=== PATIENT | female | born 1990 | race Caucasian/White ===

== ENCOUNTER 2018-03-06 16:16 | Emergency (ER) | payer BC ==
[2018-03-06] MEDS ORDERED: Ondansetron 4 MG Tab.DIS PO ONE (16:37)
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
== END 2018-03-06 17:50 | disposition home or self-care (01) ==
LOC: JD.ED 16:16
DX: T74.21XA Adult sexual abuse, confirmed, initial encounter (principal); F32.89 Other specified depressive episodes; Y92.038 Other place in apartment as the place of occurrence of the external cause
CPT/HCPCS: 99283; A9270

== ENCOUNTER 2019-03-15 21:18 | Inpatient (IN) | payer BC ==
[2019-03-15] MEDS ORDERED: Ondansetron 4 MG Tab.DIS PO PRN (22:38)
[2019-03-16] MEDS ORDERED: Bupivacaine 0.25% 10 ML SDV ONE
[2019-03-16] MEDS ORDERED: Sodium Chloride 0.9% 10 ML Syringe FLUSH PRN (00:06)
[2019-03-16] MEDS ORDERED: Oxytocin/Lactated Ringers 10 UNIT/1,000 ML BAG IV SCH ×2 (00:15)
[2019-03-16] MEDS ORDERED: Lactated Ringers 1,000 ML IV SCH (00:15)
[2019-03-16] MEDS: Nalbuphine 10 MG/1 ML Vial IVPUSH PRN ×2 (01:35→03:38)
[2019-03-16] MEDS ORDERED: fentaNYL/Bupivacaine in NS PF 2 MCG-0.125% 250 ML Premix EPIDUR PRN (04:12)
[2019-03-16] MEDS ORDERED: ePHEDrine 50 MG/ML SDV IVPUSH PRN (04:12)
[2019-03-16] MEDS ORDERED: diphenhydrAMINE 50 MG/ML SDV IVPUSH PRN (04:12)
[2019-03-16] MEDS ORDERED: fentaNYL 100 MCG/2 ML SDV EPIDUR PRN (04:12)
--- NOTE | 2019-03-16 04:15 | PCM.PREANE ---
Preanesthetic Assessment - Procedure Proposed Procedure: ivana - Anesthesia/Transfusion/Family Hx Anesthesia History: Prior Anesthesia Without Reaction Family History of Anesthesia Reaction: No Transfusion History: No Prior Transfusion(s) - Review of Systems General: No Symptoms Pulmonary: No Symptoms Cardiovascular: No Symptoms Gastrointestinal: No Symptoms Neurological: No Symptoms Other: Reports: None - Physical Assessment Vital Signs: /143/87 116 Height: 5 ft 4 in Weight: 74.661 kg ASA Class: 2 Mental Status: Alert & Oriented x3 Airway Class: Mallampati = 1 Dentition: Reports: Normal Dentition Thyro-Mental Finger Breadths: 3 Mouth Opening Finger Breadths: 3 ROM/Head Extension: Full Lungs: Clear to Auscultation, Normal Respiratory Effort Cardiovascular: Regular Rate, Regular Rhythm - Lab Values: Laboratory Last Values WBC 14.65 K/mm3 (3.98-10.04) H 03/16/19 00:30 RBC 4.24 M/mm3 (3.98-5.22) 03/16/19 00:30 Hgb 13.5 gm/dl (11.2-15.7) 03/16/19 00:30 Hct 39.6 % (34.1-44.9) 03/16/19 00:30 MCV 93.4 fl (79.4-94.8) 03/16/19 00:30 MCH 31.8 pg (25.6-32.2) 03/16/19 00:30 MCHC 34.1 g/dl (32.2-35.5) 03/16/19 00:30 RDW Std Deviation 42.3 fL (36.4-46.3) 03/16/19 00:30 Plt Count 210 K/mm3 (182-369) 03/16/19 00:30 MPV 10.6 fl (9.4-12.3) 03/16/19 00:30 Neut % (Auto) 72.8 % (34.0-71.1) H 03/16/19 00:30 Lymph % (Auto) 17.3 % (19.3-51.7) L 03/16/19 00:30 [place] % (Auto) 9.0 % (4.7-12.5) 03/16/19 00:30 Eos % (Auto) 0.5 (0.7-5.8) L 03/16/19 00:30 Baso % (Auto) 0.1 % (0.1-1.2) 03/16/19 00:30 Neut # (Auto) 10.66 K/mm3 (1.56-6.13) H 03/16/19 00:30 Lymph # (Auto) 2.54 K/mm3 (1.18-3.74) 03/16/19 00:30 [place] # (Auto) 1.32 K/mm3 (0.24-0.36) H 03/16/19 00:30 Eos # (Auto) 0.07 K/mm3 (0.04-0.36) 03/16/19 00:30 Baso # (Auto) 0.01 K/mm3 (0.01-0.08) 03/16/19 00:30 - Allergies Allergies/Adverse Reactions: Allergies Allergy/AdvReac Type Severity Reaction Status Date / Time No Known Allergies Allergy Verified 03/15/19 22:38 - Blood Blood Available: No - Acknowledgements Anesthesia Type Planned: Epidural Pt an Appropriate Candidate for the Planned Anesthesia: Yes Alternatives and Risks of Anesthesia Discussed w Pt/Guardian: Yes Pt/Guardian Understands and Agrees with Anesthesia Plan: Yes PreAnesthesia Questionnaire - Past Health History Medical/Surgical History: Denies Medical/Surgical History Cardiovascular History: Reports: None Respiratory History: Reports: None Gastrointestinal History: Reports: GERD (with preg) 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 , Other (See Below) : 3 Para: 0 Other OB/BYN History: D&C performed September 2017 - Past Surgical History Female Surgical History: Reports: D&C - SUBSTANCE USE Smoking Status *Q: Never Smoker Tobacco Use Within Last Twelve Months: No Second Hand Smoke Exposure: No Days Per Week of Alcohol Use: 0 Recreational Drug Use History: No - HOME MEDS Home Medications: Home Meds Acetaminophen [Tylenol] 325 mg PO 03/16/19 [History] Vit No.129/Iron/FA [ Tablet] 1 each PO 03/16/19 [History] - CURRENT (IN HOUSE) MEDS Current Meds: Current Medications Lactated Ringer's (Ringers, Lactated) 1,000 mls @ 100 mls/hr IV ASDIRECTED HOLLY Oxytocin/Lactated Ringer's (Pitocin In Lr 10 Units/1,000 Ml) 10 unit in 1,000 mls @ 500 mls/hr IV .CONTINUOUS HOLLY Oxytocin/Lactated Ringer's (Pitocin In Lr 10 Units/1,000 Ml) 10 unit in 1,000 mls @ 12 mls/hr IV TITRATE HOLLY; Protocol Nalbuphine HCl (Nubain) 10 mg IVPUSH Q2H PRN PRN Reason: Pain Last Admin: 03/16/19 03:38 Dose: 10 mg Ondansetron HCl (Zofran Odt) 4 mg PO Q4H PRN PRN Reason: Nausea/Vomiting Last Admin: 03/15/19 22:59 Dose: 4 mg Sodium Chloride (Saline Flush) 10 ml FLUSH ASDIRECTED PRN PRN Reason: Keep Vein Open
--- NOTE | 2019-03-16 06:53 | PCM.LDHP ---
L&D History of Present Illness - General Date of Service: 03/15/19 Admit Problem/Dx: Patient Status Order with Admit Dx/Problem 03/15/19 22:39 Patient Status [ADT] Routine 03/16/19 00:19 Admission Status [Patient Status] [ADT] Routine Admission Diagnosis/Problem Admission Diagnosis/Problem Source of Information: Patient History Limitations: Reports: No Limitations - History of Present Illness Introduction:: Patient is a 28 y/o at 38 6/7 wks who presents in labor. Contractions have been uncomfortable since clinic appointment. 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 : 3 Para: 0 LMP (Approximate): - Past Surgical History Female Surgical History: Reports: D&C Social & Family History - Family History Family Medical History: Noncontributory - Tobacco Use Smoking Status *Q: Never Smoker Second Hand Smoke Exposure: No - Alcohol Use Alcohol Use History: No Days Per Week of Alcohol Use: 0 - Recreational Drug Use Recreational Drug Use: No H&P Review of Systems - Review of Systems: Review Of Systems: See Below General: Reports: No Symptoms Pulmonary: Reports: No Symptoms Cardiovascular: Reports: No Symptoms Gastrointestinal: Reports: Abdominal Pain Genitourinary: Reports: No Symptoms Musculoskeletal: Reports: No Symptoms Psychiatric: Reports: No Symptoms Neurological: Reports: No Symptoms L&D Exam - Exam Exam: See Below - Vital Signs Weight: 74.661 kg - OB Specific Contraction Intensity: Moderate Movement: Active Heart Tones: Present Heart Tones per Min: 135 Heart Rate (FHR) Variability: Moderate (6-25 bmp) Presentation: Vertex - Myers Score Myers Score Cervix Position: Midposition Myers Score Consistency: Soft Myers Score Effacement: 51-70% Myers Score Dilation: 3-4 cm Myers Score 's Station: -2 Myers Score Total: 8 - Exam General: Alert, Oriented, Cooperative Lungs: Clear to Auscultation, Normal Respiratory Effort Cardiovascular: Regular Rate, Regular Rhythm GI/Abdominal Exam: Soft, Non-Tender Genitourinary: Normal external exam Extremities: Normal Inspection Skin: Warm, Dry, Intact - Patient Data Lab Results Last 24 hrs: Laboratory Results - last 24 hr 03/16/19 Range/Units 00:30 WBC 14.65 H (3.98-10.04) K/mm3 RBC 4.24 (3.98-5.22) M/mm3 Hgb 13.5 (11.2-15.7) gm/dl Hct 39.6 (34.1-44.9) % MCV 93.4 (79.4-94.8) fl MCH 31.8 (25.6-32.2) pg MCHC 34.1 (32.2-35.5) g/dl RDW Std Deviation 42.3 (36.4-46.3) fL Plt Count 210 (182-369) K/mm3 MPV 10.6 (9.4-12.3) fl Neut % (Auto) 72.8 H (34.0-71.1) % Lymph % (Auto) 17.3 L (19.3-51.7) % [place] % (Auto) 9.0 (4.7-12.5) % Eos % (Auto) 0.5 L (0.7-5.8) Baso % (Auto) 0.1 (0.1-1.2) % Neut # (Auto) 10.66 H (1.56-6.13) K/mm3 Lymph # (Auto) 2.54 (1.18-3.74) K/mm3 [place] # (Auto) 1.32 H (0.24-0.36) K/mm3 Eos # (Auto) 0.07 (0.04-0.36) K/mm3 Baso # (Auto) 0.01 (0.01-0.08) K/mm3 Result Diagrams: 03/16/19 00:30 - Problem List (1) 39 weeks gestation of SNOMED Code(s): 66449451 ICD Code: Z3A.39 - 39 WEEKS GESTATION OF Status: Acute Current Visit: Yes (2) Normal labor SNOMED Code(s): 31471547 ICD Code: O80 - ENCOUNTER FOR FULL-TERM UNCOMPLICATED DELIVERY; Z37.9 - OUTCOME OF DELIVERY, UNSPECIFIED Status: Acute Current Visit: Yes Problem List Initiated/Reviewed/Updated: Yes Orders Last 24hrs: Active Orders 24 hr Category Date Time Status Admission Status [Patient Status] [ADT] Routine ADT 03/16/19 00:19 Active Patient Status [ADT] Routine ADT 03/15/19 22:39 Active Activity as Tolerated [RC] PFP Care 03/16/19 00:06 Active Communication Order [RC] ASDIRECTED Care 03/16/19 00:06 Active Heart Tones [RC] ASDIRECTED Care 03/16/19 00:06 Active Non Stress Test [RC] PER UNIT ROUTINE Care 03/15/19 22:39 Active Non Stress Test [RC] PER UNIT ROUTINE Care 03/16/19 00:06 Active Notify Provider [RC] ASDIRECTED Care 03/16/19 04:12 Active Notify Provider [RC] PFP Care 03/16/19 00:06 Active Notify Provider [RC] PRN Care 03/16/19 00:06 Active Peripheral IV Care [RC] . DIRECTED Care 03/16/19 00:06 Active Vital Signs [RC] PER UNIT ROUTINE Care 03/15/19 22:39 Active Vital Signs [RC] PER UNIT ROUTINE Care 03/16/19 00:06 Active Regular Diet [DIET] Diet 03/15/19 Dinner Active RAPID PLASMA REAGIN,RPR [CHEM] Routine Lab 03/16/19 00:30 Received Bupivicaine/fentaNYL/NS [fentaNYL/Bupivacaine/NS 2 MCG- Med 03/16/19 04:12 Active 0.125% 250 ML] 2 mcg EPIDUR CONTINUOUS PRN Lactated Ringers [Ringers, Lactated] 1,000 ml Med 03/16/19 00:15 Active IV ASDIRECTED Nalbuphine [Nubain] Med 03/16/19 00:06 Active 10 mg IVPUSH Q2H PRN Ondansetron [Zofran ODT] Med 03/15/19 22:38 Active 4 mg PO Q4H PRN Oxytocin/Lactated Ringers [Pitocin in LR 10 Units/1,000 Med 03/16/19 00:15 Active ML] 10 unit in 1,000 ml IV .CONTINUOUS Oxytocin/Lactated Ringers [Pitocin in LR 10 Units/1,000 Med 03/16/19 00:15 Active ML] 10 unit in 1,000 ml IV TITRATE Sodium Chloride 0.9% [Saline Flush] Med 03/16/19 00:06 Active 10 ml FLUSH ASDIRECTED PRN diphenhydrAMINE [Benadryl] Med 03/16/19 04:12 Active 25 mg IVPUSH Q6H PRN ePHEDrine [ePHEDrine sulfate] Med 03/16/19 04:12 Active 5 mg IVPUSH ASDIRECTED PRN fentaNYL [Sublimaze] Med 03/16/19 04:12 Active 100 mcg EPIDUR Q3H PRN Electronic Heart Tones Ext w TOCO [WOMSER] Oth 03/16/19 00:06 Ordered Routine Electronic Heart Tones Internal [WOMSER] Per Unit Ot 03/16/19 00:06 Ordered Routine Peripheral IV Insertion Adult [OM.PC] Routine Oth 03/16/19 00:06 Ordered Resuscitation Status Routine Resus Stat 03/15/19 22:38 Ordered Medication Orders Diphenhydramine HCl (Benadryl) 25 mg IVPUSH Q6H PRN PRN Reason: pruritis Ephedrine Sulfate (Ephedrine Sulfate) 5 mg IVPUSH ASDIRECTED PRN PRN Reason: Hypotension Fentanyl (Sublimaze) 100 mcg EPIDUR Q3H PRN PRN Reason: Pain Fentanyl/Bupivacaine HCl (Fentanyl/Bupivacaine/Ns 2 Mcg-0.125% 250 Ml) 2 mcg EPIDUR CONTINUOUS PRN PRN Reason: Pain Lactated Ringer's (Ringers, Lactated) 1,000 mls @ 100 mls/hr IV ASDIRECTED HOLLY Oxytocin/Lactated Ringer's (Pitocin In Lr 10 Units/1,000 Ml) 10 unit in 1,000 mls @ 500 mls/hr IV .CONTINUOUS HOLLY Oxytocin/Lactated Ringer's (Pitocin In Lr 10 Units/1,000 Ml) 10 unit in 1,000 mls @ 12 mls/hr IV TITRATE HOLLY; Protocol Nalbuphine HCl (Nubain) 10 mg IVPUSH Q2H PRN PRN Reason: Pain Last Admin: 03/16/19 03:38 Dose: 10 mg Admin: 03/16/19 01:35 Dose: 10 mg Ondansetron HCl (Zofran Odt) 4 mg PO Q4H PRN PRN Reason: Nausea/Vomiting Last Admin: 03/15/19 22:59 Dose: 4 mg Sodium Chloride (Saline Flush) 10 ml FLUSH ASDIRECTED PRN PRN Reason: Keep Vein Open Assessment/Plan Comment:: 28 y/o at 38 6/7 wks presents in labor * Labs * GBS negative, no need for antibiotics * Pain management per patietn preference * Anticipate
--- NOTE | 2019-03-16 08:00 | PCM.DEL ---
L & D Note - General Info Date of Service: 03/16/19 - Delivery Note Labor: Spontaneous Delivery Outcome: Livebirth Delivery Method: Spontaneous Vaginal Delivery-Single Delivery Mode: Vacuum Extraction Presentation: Right Occiput Posterior (ROP) Nuchal Cord: Present (x2), Reduced Anesthesia Type: Epidural Amniotic Fluid Description: Meconium Stained Episiotomy Type: None Laceration: 2nd Degree, Perineal Suture type: Vicryl Suture size: 2-0 Placenta: Intact, Spontaneous Cord: 3 Vessels Estimated Blood Loss: 100 : Suctioned, Bulb Syringe, Stimulated, Warmed, Riddle Used, Warmer Used Score 1 min: 2 Score 5 min: 7 Delivery Comments (Free Text/Narrative):: The patient was pushing in the dorsal lithotomy position. Sterile vaginal exam complete/complete/+3 station. head in ROP presentation. Maternal pushing effort was good and the pelvis was felt to be adequate for an instrument assisted delivery. Given repetitive variable decelerations the decision was made to proceed with vacuum assisted vaginal delivery. The mushroom cup was placed without difficulty with care to avoid the vaginal side graves. Pressure applied at 0736. Subsequent vacuum assisted vaginal delivery at 0741 with pushing over 3 contractions. Total pressure applied 550 mmHg. Total pop offs 0. Suction was removed following delivery of the head. Nuchal cord x2 was reduced without difficulty. The remainder of the infant delivered without difficulty. The umbilical cord was clamped and cut and the infant was taken to the warmer for assessment. Cord segment obtained for cord gas, but not able to be run due to malfunctioning equipment. Placenta allowed time to separate and expelled intact. Inspection of the perineum following delivery with a 2nd degree laceration noted. This was repaired with a 2-0 vicryl in the typical fashion. Vacuum Extractor Progress Note - Alternative Labor Strategies Considered Alternative Labor Strategies Considered:: Reports: Yes Strategies Considered:: Reports: Contraction Intensity Adequate, Position Changes Used to Facilitate Rotation & Descent, Empty Bladder Indications Considered:: Reports: Yes Indications:: Reports: Suspicion of Immediate or Potential Compromise Time Out:: Reports: Yes - Patient Prepared Patient Prepared:: Reports: Yes Informed Consent:: Reports: Verbal Risks: Reports: Yes Risks Include:: Reports: Laceration, Shoulder Dystocia, Maternal Injury Anesthesia/Analgesia Adequate:: Reports: Yes - Probability of Success High Probability of Success:: Reports: Yes Weight Estimated:: Reports: AGA Patient Diabetic:: Reports: No Pelvis Adequate:: Reports: Yes Position:: ROP Asynclitic:: Reports: No Station:: +3 - Application Time Maximum Application Time & Number of Pop-Offs Predetermined:: Reports: Yes Maximum Pressure Maintained in Green Zone (cm Hg):: 550 Total Application Time (min): *max=20min: 5 Number of Times Cup Disengaged:: 0 Type of Vacuum Used:: Reports: Cup: Mushroom type Vacuum Extraction: Successful - Exit Strategy Exit strategy available:: Reports: Yes and resuscitation teams readily available:: Reports: Yes - General Info Date of Service: 03/16/19 - Patient Data Weight - Most Recent: 74.661 kg - Problem List & Annotations (1) 39 weeks gestation of SNOMED Code(s): 93403466 Code(s): Z3A.39 - 39 WEEKS GESTATION OF Status: Acute Current Visit: Yes (2) Normal labor SNOMED Code(s): 02858483 Code(s): O80 - ENCOUNTER FOR FULL-TERM UNCOMPLICATED DELIVERY; Z37.9 - OUTCOME OF DELIVERY, UNSPECIFIED Status: Acute Current Visit: Yes (3) Meconium stained amniotic fluid, delivered, current hospitalization SNOMED Code(s): 290383680, 036801993 Code(s): O77.0 - LABOR AND DELIVERY COMPLICATED BY MECONIUM IN AMNIOTIC FLUID Status: Acute Current Visit: Yes (4) Double nuchal cord SNOMED Code(s): 636653533 Code(s): O69.1XX0 - LABOR AND DELIVERY COMP BY CORD AROUND NECK, W COMPRSN, UNSP Status: Acute Current Visit: Yes Qualifiers: Fetus number: single or unspecified fetus Qualified Code(s): O69.1XX0 - Labor and delivery complicated by cord around neck, with compression, not applicable or unspecified (5) Non-reassuring heart tones, delivered, current hospitalization SNOMED Code(s): 009027021, 749884370 Code(s): O76 - ABNLT IN HEART RATE AND RHYTHM COMP LABOR AND DELIVERY Status: Acute Current Visit: Yes (6) Vacuum-assisted vaginal delivery SNOMED Code(s): 13216237848473905 Code(s): Z37.9 - OUTCOME OF DELIVERY, UNSPECIFIED Status: Acute Current Visit: Yes - Problem List Review Problem List Initiated/Reviewed/Updated: Yes - My Orders Last 24 Hours: My Active Orders 03/15/19 22:38 Ondansetron [Zofran ODT] 4 mg PO Q4H PRN Resuscitation Status Routine 03/15/19 22:39 Patient Status [ADT] Routine Non Stress Test [RC] PER UNIT ROUTINE Vital Signs [RC] PER UNIT ROUTINE 03/15/19 Dinner Regular Diet [DIET] 03/16/19 00:06 Activity as Tolerated [RC] PFP Communication Order [RC] ASDIRECTED Heart Tones [RC] ASDIRECTED Non Stress Test [RC] PER UNIT ROUTINE Notify Provider [RC] PFP Notify Provider [RC] PRN Peripheral IV Care [RC] . DIRECTED Vital Signs [RC] PER UNIT ROUTINE Nalbuphine [Nubain] 10 mg IVPUSH Q2H PRN Sodium Chloride 0.9% [Saline Flush] 10 ml FLUSH ASDIRECTED PRN Electronic Heart Tones Ext w TOCO [WOMSER] Routine Electronic Heart Tones Internal [WOMSER] Per Unit Routine Peripheral IV Insertion Adult [OM.PC] Routine 03/16/19 00:15 Lactated Ringers [Ringers, Lactated] 1,000 ml IV ASDIRECTED Oxytocin/Lactated Ringers [Pitocin in LR 10 Units/1,000 ML] 10 unit in 1,000 ml IV .CONTINUOUS Oxytocin/Lactated Ringers [Pitocin in LR 10 Units/1,000 ML] 10 unit in 1,000 ml IV TITRATE 03/16/19 00:19 Admission Status [Patient Status] [ADT] Routine 03/16/19 00:30 RAPID PLASMA REAGIN,RPR [CHEM] Routine - Assessment Assessment:: 28 y/o G3 now P1021 PPD#0 from [facility] at 39 0/7 wks - Plan Plan:: [facility] * Routine cares * Encourage breast feeding * Discharge home in 1-2 days
[2019-03-16] MEDS ORDERED: Hydrocortisone Acetate 25 MG Supp RECTAL PRN (09:12)
[2019-03-16] MEDS ORDERED: Benzocaine/Menthol 20%-0.5% Spray 56 GM Canister TOP PRN (09:12)
[2019-03-16] MEDS ORDERED: Acetaminophen 325 MG Tab PO PRN (09:12)
[2019-03-16] MEDS: Ibuprofen 600 MG Tab PO PRN (16:31)
[2019-03-17] MEDS: Ibuprofen 600 MG Tab PO PRN ×2 (00:41→21:38)
--- NOTE | 2019-03-17 08:07 | PCM.PNPP ---
- General Info Date of Service: 03/17/19 Functional Status: Reports: Pain Controlled, Tolerating Diet, Ambulating, Urinating - Review of Systems General: Reports: No Symptoms Pulmonary: Reports: No Symptoms Cardiovascular: Reports: No Symptoms Gastrointestinal: Reports: No Symptoms Genitourinary: Reports: No Symptoms Musculoskeletal: Reports: No Symptoms Neurological: Reports: No Symptoms - Patient Data Vital Signs - Most Recent: Last Vital Signs Temp 36.6 C 03/16/19 20:10 Pulse 97 03/17/19 03:21 Resp 14 03/16/19 20:10 BP 114/63 03/17/19 03:21 Pulse Ox 98 03/17/19 03:21 Weight - Most Recent: 74.661 kg I&O - Last 24 Hours: Intake & Output 03/16/19 03/17/19 03/17/19 22:59 06:59 14:59 Intake Total 210 Balance 210 Lab Results - Last 24 Hours: Laboratory Results - last 24 hr 03/16/19 Range/Units 00:30 RPR Non-reactive (NONREACTIVE) Med Orders - Current: Current Medications Acetaminophen (Tylenol) 650 mg PO Q4H PRN PRN Reason: mild pain or fever Benzocaine/Menthol (Dermoplast Pain Relief [place]) 0 gm TOP ASDIRECTED PRN PRN Reason: Perineal Comfort Measure Docusate Sodium (Colace) 100 mg PO BID PRN PRN Reason: Constipation Hydrocortisone Acetate (Anucort-Hc) 25 mg RECTAL BID PRN PRN Reason: Hemorrhoid pain Ibuprofen (Motrin) 600 mg PO Q6H PRN PRN Reason: Mild pain or fever Last Admin: 03/17/19 00:41 Dose: 600 mg Witch [place]ra (Tucks) 1 pad TOP ASDIRECTED PRN PRN Reason: Perineal Comfort Measure Discontinued Medications Diphenhydramine HCl (Benadryl) 25 mg IVPUSH Q6H PRN PRN Reason: pruritis Ephedrine Sulfate (Ephedrine Sulfate) 5 mg IVPUSH ASDIRECTED PRN PRN Reason: Hypotension Fentanyl (Sublimaze) 100 mcg EPIDUR Q3H PRN PRN Reason: Pain Fentanyl/Bupivacaine HCl (Fentanyl/Bupivacaine/Ns 2 Mcg-0.125% 250 Ml) 2 mcg EPIDUR CONTINUOUS PRN PRN Reason: Pain Lactated Ringer's (Ringers, Lactated) 1,000 mls @ 100 mls/hr IV ASDIRECTED [place] Oxytocin/Lactated Ringer's (Pitocin In Lr 10 Units/1,000 Ml) 10 unit in 1,000 mls @ 500 mls/hr IV .CONTINUOUS [place] Oxytocin/Lactated Ringer's (Pitocin In Lr 10 Units/1,000 Ml) 10 unit in 1,000 mls @ 12 mls/hr IV TITRATE HOLLY; Protocol Nalbuphine HCl (Nubain) 10 mg IVPUSH Q2H PRN PRN Reason: Pain Last Admin: 03/16/19 03:38 Dose: 10 mg Ondansetron HCl (Zofran Odt) 4 mg PO Q4H PRN PRN Reason: Nausea/Vomiting Last Admin: 03/15/19 22:59 Dose: 4 mg Sodium Chloride (Saline Flush) 10 ml FLUSH ASDIRECTED PRN PRN Reason: Keep Vein Open - Interaction Infant Disposition, : [place] in Room with Family Interaction: Holding Infant Feeding: Attempted ; Nursed Fair/Poor Support Person: - Recovery Exam Fundal Tone: Firm Fundal Level: 2 Fingerbreadths Below Umbilicus Fundal Placement: Midline Lochia Amount: Small Lochia Color: Rubra/Red Perineum Description: Intact, Minimal Bruising/Swelling Episiotomy/Laceration: Approximated Bladder Status: Voiding Urinary Elimination: Voided - Exam General: Alert, Oriented, Cooperative GI/Abdominal Exam: Soft, Non-Tender Extremities: Normal Inspection Skin: Warm, Dry, Intact - Problem List & Annotations (1) 39 weeks gestation of SNOMED Code(s): 94845988 Code(s): Z3A.39 - 39 WEEKS GESTATION OF Status: Acute Current Visit: Yes (2) Normal labor SNOMED Code(s): 36472822 Code(s): O80 - ENCOUNTER FOR FULL-TERM UNCOMPLICATED DELIVERY; Z37.9 - OUTCOME OF DELIVERY, UNSPECIFIED Status: Acute Current Visit: Yes (3) Meconium stained amniotic fluid, delivered, current hospitalization SNOMED Code(s): 886071239, 266968063 Code(s): O77.0 - LABOR AND DELIVERY COMPLICATED BY MECONIUM IN AMNIOTIC FLUID Status: Acute Current Visit: Yes (4) Double nuchal cord SNOMED Code(s): 251352854 Code(s): O69.1XX0 - LABOR AND DELIVERY COMP BY CORD AROUND NECK, W COMPRSN, UNSP Status: Acute Current Visit: Yes Qualifiers: Fetus number: single or unspecified fetus Qualified Code(s): O69.1XX0 - Labor and delivery complicated by cord around neck, with compression, not applicable or unspecified (5) Non-reassuring heart tones, delivered, current hospitalization SNOMED Code(s): 097163184, 877352442 Code(s): O76 - ABNLT IN HEART RATE AND RHYTHM COMP LABOR AND DELIVERY Status: Acute Current Visit: Yes (6) Vacuum-assisted vaginal delivery SNOMED Code(s): 21998178544747707 Code(s): Z37.9 - OUTCOME OF DELIVERY, UNSPECIFIED Status: Acute Current Visit: Yes - Problem List Review Problem List Initiated/Reviewed/Updated: Yes - My Orders Last 24 Hours: My Active Orders 03/16/19 09:12 Activity as Tolerated [RC] PER UNIT ROUTINE Vital Signs [RC] 03,09,15,21 Acetaminophen [Tylenol] 650 mg PO Q4H PRN Benzocaine/Menthol [Dermoplast Pain Relief [place]] See Dose Instructions TOP ASDIRECTED PRN Docusate Sodium [Colace] 100 mg PO BID PRN Hydrocortisone Acetate [Anucort-HC] 25 mg RECTAL BID PRN Ibuprofen [Motrin] 600 mg PO Q6H PRN Witch [place]ra [Tucks] 1 pad TOP ASDIRECTED PRN Assess Lochia [WOMSER] Per Unit Routine Assess Uterine Involution [WOMSER] Per Unit Routine Breast Pump [WOMSER] Per Unit Routine Heat Therapy [OM.PC] PRN Ice Therapy [OM.PC] Per Unit Routine Perineal Care [OM.PC] Per Unit Routine Peripheral IV Discontinue [OM.PC] Routine Sitz Bath [OM.PC] Per Unit Routine 03/17/19 09:12 Heat Therapy [OM.PC] PRN - Assessment Assessment:: 28 y/o G3 now P1021 PPD#1 from [facility] at 39 0/7 wks - Plan Plan:: [facility] * Routine cares * Encourage breast feeding * Discharge home tomorrow
[2019-03-17] MEDS: Witch Hazel Medicated Pads 40/Jar TOP PRN (11:38)
[2019-03-17] MEDS: Docusate Sodium 100 MG Cap PO PRN (11:38)
[2019-03-18] MEDS: Docusate Sodium 100 MG Cap PO PRN (10:52)
--- NOTE | 2019-03-18 10:54 | PCM.DCSUM1 ---
Discharge Summary - Hospital Course Free Text/Narrative:: See dictated note by Dr. Arevalo for delivery note HPI Initial Comments: See dictated note by Dr. Arevalo for delivery note Brief History: See dictated note by Dr. Arevalo for delivery note Diagnosis: Stroke: No - Discharge Data Discharge Date: 03/18/19 Discharge Disposition: Home, Self-Care 01 Condition: Good - Referral to Home Health Primary Care Physician: Madonna Arevalo MD - Discharge Diagnosis/Problem(s) (1) 39 weeks gestation of SNOMED Code(s): 22666808 ICD Code: Z3A.39 - 39 WEEKS GESTATION OF Status: Acute Current Visit: Yes (2) Double nuchal cord SNOMED Code(s): 946604270 ICD Code: O69.1XX0 - LABOR AND DELIVERY COMP BY CORD AROUND NECK, W COMPRSN, UNSP Status: Acute Current Visit: Yes Qualifiers: Fetus number: single or unspecified fetus Qualified Code(s): O69.1XX0 - Labor and delivery complicated by cord around neck, with compression, not applicable or unspecified (3) Meconium stained amniotic fluid, delivered, current hospitalization SNOMED Code(s): 308817917, 818130813 ICD Code: O77.0 - LABOR AND DELIVERY COMPLICATED BY MECONIUM IN AMNIOTIC FLUID Status: Acute Current Visit: Yes (4) Non-reassuring heart tones, delivered, current hospitalization SNOMED Code(s): 306557189, 070781315 ICD Code: O76 - ABNLT IN HEART RATE AND RHYTHM COMP LABOR AND DELIVERY Status: Acute Current Visit: Yes (5) Vacuum-assisted vaginal delivery SNOMED Code(s): 53641284390888293 ICD Code: Z37.9 - OUTCOME OF DELIVERY, UNSPECIFIED Status: Acute Current Visit: Yes - Patient Summary/Data Complications: None Consults: None Hospital Course: Uneventful - Patient Instructions Diet: Usual Diet as Tolerated Driving: Do Not Drive (48 hours) Showering/Bathing: May Shower Notify Provider of: Fever, Increased Pain, Swelling and Redness, Drainage, Nausea and/or Vomiting - Discharge Plan *PRESCRIPTION DRUG MONITORING PROGRAM REVIEWED*: Not Applicable *COPY OF PRESCRIPTION DRUG MONITORING REPORT IN PATIENT AISHWARYA: Not Applicable Home Medications: Home Meds Acetaminophen [Tylenol] 325 mg PO 03/16/19 [History] Vit No.129/Iron/FA [ One Daily Tablet] 1 each PO 03/16/19 [ History] Acetaminophen [Tylenol] 650 mg PO Q6H PRN tablet 03/18/19 [Rx] Docusate Sodium [Colace] 100 mg PO BID PRN cap 03/18/19 [Rx] Ibuprofen [Motrin] 600 mg PO Q6H PRN tablet 03/18/19 [Rx] Witch [place]ra [Tucks] 1 pad TOP ASDIRECTED PRN pad 03/18/19 [Rx] Referrals: Madonna Arevalo MD [Primary Care Provider] - (Patient will call Wednesday to schedule appointment to see Dr. Arevalo) - Discharge Summary/Plan Comment DC Time >30 min.: No - Patient Data Vitals - Most Recent: Last Vital Signs Temp 98.1 F 03/18/19 09:48 Pulse 109 H 03/18/19 09:48 Resp 14 03/18/19 09:48 BP 130/63 03/18/19 09:48 Pulse Ox 97 03/18/19 09:48 Weight - Most Recent: 164 lb 9.6 oz I&O - Last 24 hours: Intake & Output 03/17/19 03/18/19 03/18/19 22:59 06:59 14:59 Intake Total 180 Balance 180 Med Orders - Current: Current Medications Acetaminophen (Tylenol) 650 mg PO Q4H PRN PRN Reason: mild pain or fever Last Admin: 03/17/19 14:53 Dose: 650 mg Benzocaine/Menthol (Dermoplast Pain Relief [place]) 0 gm TOP ASDIRECTED PRN PRN Reason: Perineal Comfort Measure Docusate Sodium (Colace) 100 mg PO BID PRN PRN Reason: Constipation Last Admin: 03/18/19 10:52 Dose: 100 mg Hydrocortisone Acetate (Anucort-Hc) 25 mg RECTAL BID PRN PRN Reason: Hemorrhoid pain Ibuprofen (Motrin) 600 mg PO Q6H PRN PRN Reason: Mild pain or fever Last Admin: 03/17/19 21:38 Dose: 600 mg [place] (Tucks) 1 pad TOP ASDIRECTED PRN PRN Reason: Perineal Comfort Measure Last Admin: 03/17/19 11:38 Dose: 1 each Discontinued Medications Bupivacaine HCl (Sensorcaine-Mpf 0.25%) 10 ml .ROUTE .STK-MED ONE Stop: 03/16/19 00:01 Diphenhydramine HCl (Benadryl) 25 mg IVPUSH Q6H PRN PRN Reason: pruritis Ephedrine Sulfate (Ephedrine Sulfate) 5 mg IVPUSH ASDIRECTED PRN PRN Reason: Hypotension Fentanyl (Sublimaze) 100 mcg EPIDUR Q3H PRN PRN Reason: Pain Fentanyl/Bupivacaine HCl (Fentanyl/Bupivacaine/Ns 2 Mcg-0.125% 250 Ml) 2 mcg EPIDUR CONTINUOUS PRN PRN Reason: Pain Lactated Ringer's (Ringers, Lactated) 1,000 mls @ 100 mls/hr IV ASDIRECTED [place] Oxytocin/Lactated Ringer's (Pitocin In Lr 10 Units/1,000 Ml) 10 unit in 1,000 mls @ 500 mls/hr IV .CONTINUOUS [place] Oxytocin/Lactated Ringer's (Pitocin In Lr 10 Units/1,000 Ml) 10 unit in 1,000 mls @ 12 mls/hr IV TITRATE HO[place]; Protocol Nalbuphine HCl (Nubain) 10 mg IVPUSH Q2H PRN PRN Reason: Pain Last Admin: 03/16/19 03:38 Dose: 10 mg Ondansetron HCl (Zofran Odt) 4 mg PO Q4H PRN PRN Reason: Nausea/Vomiting Last Admin: 03/15/19 22:59 Dose: 4 mg Sodium Chloride (Saline Flush) 10 ml FLUSH ASDIRECTED PRN PRN Reason: Keep Vein Open
[2019-03-18] MEDS: Witch Hazel Medicated Pads 40/Jar TOP PRN (11:11)
== END 2019-03-18 11:17 | disposition home or self-care (01) | DRG 560 ==
LOC: JD.OBCHECK 21:18 → JD.OB 03-16 00:19 → OBSVTOIN 03-16 07:41 → JD.OB 03-16 16:51
PROVIDERS: ADMIT Obstetrics & Gynecology; ATTEND Obstetrics & Gynecology
PROC: 10D07Z6 Extraction of Products of Conception, Vacuum, Via Natural or Artificial Opening (ICD-10-PCS; principal; 2019-03-16)
PROC: 0KQM0ZZ Repair Perineum Muscle, Open Approach (ICD-10-PCS; 2019-03-16)
PROC: 3E0R3BZ Introduction of Anesthetic Agent into Spinal Canal, Percutaneous Approach (ICD-10-PCS; 2019-03-16)
DX: O69.1XX0 Labor and delivery complicated by cord around neck, with compression, not applicable or unspecified (principal); O77.0 Labor and delivery complicated by meconium in amniotic fluid; Z37.0 Single live birth; O70.1 Second degree perineal laceration during delivery; O76 Abnormality in fetal heart rate and rhythm complicating labor and delivery; O99.62 Diseases of the digestive system complicating childbirth; K21.9 Gastro-esophageal reflux disease without esophagitis; Z3A.39 39 weeks gestation of pregnancy
CPT/HCPCS: 36415; 51701; 51702; 59025; 59409; 85025; 86592; A9270-GY; J2300; J3490